=== PATIENT | female | born 1965 | race African-American/Black ===

== ENCOUNTER 2022-05-26 14:13 | Emergency (ER) | payer BC ==
[~2022-05-26] VITALS: Ht 172.7 cm; Wt 78.0 kg
[2022-05-26 14:21] VITALS: BP 131/77
[2022-05-26] MEDS ORDERED: LIDOCAINE HCL 1% 20ML VIAL (Pyxis) INJ INFIL ONE (16:30)
== END 2022-05-26 18:23 | disposition home or self-care (01) ==
LOC: ER 14:53
DX: S01.111A Laceration without foreign body of right eyelid and periocular area, initial encounter (principal); W18.39XA Other fall on same level, initial encounter; Y93.89 Activity, other specified; Y92.89 Other specified places as the place of occurrence of the external cause; Y99.8 Other external cause status; E03.9 Hypothyroidism, unspecified
CPT/HCPCS: 12013; 99283; Z7610